=== PATIENT | male | born 1980 | race Caucasian/White ===

== ENCOUNTER 2017-01-12 13:12 | Emergency (ER) | payer MEDICARE, MEDICAID ==
--- NOTE | 2017-01-12 13:29 | ED Physician Chart ---
Chief Complaint/HPI - Patient Information Date Seen:: 01/12/17 Time Seen:: 13:28 Chief Complaint:: CHEST PAIN History of Present Illness:: This 36 year old male was BIB EMS for chest pain. The PT had been at [facility] for Chest Pain. He walked out of there when he felt that the wait was too long. His chest pain was well localized to the left upper anterior chest. It was described as "prickling needles". The pain has been present for "a long time." On further questioning the PT said he had been having it for years. He further states that the pain has been worse for 2 days. The severity of the pain was rated as 1/10. It was not made worse by deep inspiration or cough. It did get worse when other "people were talking too loud." The Pt could not identify any relieving factors. The pain was non- radiating. The Pt has no prior history of heart disease, PE, DVT, cancer, recent surgery, or leg swelling. The PT does have a history of schizophrenia and he is homeless. The pt denied any shortness of breath, fever, chills, nausea, cough or hemoptysis. Review of Systems - Review of Systems General/Constitutional: No fever, No chills, No diaphoresis, No edema Skin: No skin lesions, No bruising Head: No headache Eyes: No loss of vision, No pain, No diplopia ENT: No earache, No sore throat Neck: No neck pain, No stiffness Cardio Vascular: Chest pain, No palpitations, No PND, No orthopnea, No edema Pulmonary: No SOB, No cough, No sputum, No wheezing, Other ( no coughing up blood) GI: No nausea, No vomiting, No diarrhea, No pain G/U: No dysuria, No frequency Endocrine: No polyuria, No polydipsia Psychiatric: Prior psych history, No anxiety, No suicidal ideation, No homicidal ideation, No auditory hallucination, No visual hallucination Hematopoietic: No bruising Allergic/Immuno: No urticaria, No angioedema Neurological: No syncope, No focal symptoms, No weakness, No paresthesia, No headache, No seizure, No dizziness, No vertigo Past Medical History - Past Medical History Social History: Non Smoker, No Alcohol, No Drug Use, Homeless Employment:: Un employed and on social security disability Family Medical History - Family Member Mother History Unknown: Yes Physical Exam - Physical Examination General/Constitutional: Awake, Well-developed, well-nourished, Alert, No distress, Non-toxic appearing, Ambulatory Head: Atraumatic Eyes: Lids, conjuctiva normal, PERRL, EOMI Other Eyes comments:: no nystagmus. Skin: No rash Other Skin comments:: Feet extremely dirty but no evidence of cellulitis. ENMT: External ears, nose nl, Lips, teeth, gums nl, Oropharynx nl, Tonsils nl Neck: Nontender, No JVD, No nuchal rigidity, No mass Respiratory: Nl effort/Exclusion, Clear to Auscultation, No Wheeze/Rhonchi/Rales Cardio Vascular: RRR, No murmur, gallop, rubs, NL S1 S2 Other Cardio Vascular comments:: Good peripheral pulses in all four extremities. GI: No tenderness/rebounding/guarding, No organomegaly, No hernia, Nondistended , No McBurney tenderness Other GI comments:: Rectal examination deferred at my discretion. : No CVA tenderness, NL external genitalia Extremities: No tenderness or effusion, normal strength in all extremities, No edema Neuro/Psych: Alert/oriented, Normal sensory exam, Normal motor strength, Normal gait, No focal deficits Misc: Normal back, No paraspinal tenderness Labs/Radiology/EKG Results - Radiology Results Results: SINGLE VIEW CXR: NO cardiomegaly, NO CHF, NO mediastinal widening, NO pneumothorax, NO areas of pulmonary consolidation or infiltrate. IMPRESSION: NO ACUTE CARDIOPULMONARY ABNORMALITIES. Laboratory Tests 01/12/17 01/12/17 01/12/17 13:36 13:36 13:36 WBC 7.3 RBC 4.31 Hgb 13.6 Hct 39.2 MCV 90.8 MCH 31.4 H MCHC Differential 34.6 RDW 12.2 Plt Count 327 MPV 7.4 Neutrophils % 65.8 Lymphocytes % 22.4 Monocytes % 9.2 Eosinophils % 2.3 Basophils % 0.3 D-Dimer Sodium 139 Potassium 3.2 L Chloride 108 H Carbon Dioxide 27.3 Anion Gap 6.9 L BUN 16 Creatinine 0.9 Est GFR ( Amer) > 60.0 Est GFR (Non-Af Amer) > 60.0 BUN/Creatinine Ratio 17.8 Glucose 101 Calcium 8.9 Troponin I 0.02 01/12/17 13:36 WBC RBC Hgb Hct MCV MCH MCHC Differential RDW Plt Count MPV Neutrophils % Lymphocytes % Monocytes % Eosinophils % Basophils % D-Dimer 180 Sodium Potassium Chloride Carbon Dioxide Anion Gap BUN Creatinine Est GFR ( Amer) Est GFR (Non-Af Amer) BUN/Creatinine Ratio Glucose Calcium Troponin I LAB INTERPRETATION: CBC shows no leukocytosis or anemia. The D dimer and troponin levels were both within the normal parameters. Electrolytes were within the normal parameters except for a mildly elevated chloride and potassium of 3.2. - EKG Interpretations EKG Time:: 13:20 Rate & Rhythm: NSR AT RATE OF 78. [place]: NORMAL Intervals: MT interval is normal. The QRS duration is normal. The QT interval is nor Comments:: No ST segment elevation or depression. Normal appearing T waves. Impression: No acute ischemic findings. Assessment - Assessment General Assessment: CASE SUMMARY: This 36 year old male presens with chronic chest pain. The pain does not sound like cardiac ischemia and the pt has no risk factors for pulmonary embolus. The patient is homeless and it seemed that his major concern was getting a shower. Pt got shower. EKG showed no ischemic findings. The CXR was normal. The patient was discharged in stable condition. MDM DDX CHEST PAIN: NOT Cardiac ischemia based on history, exam, EKG and lab results. LOW RISK for PE. NOT Pneumothorax based on the chest x-ray. NOT Pneumonia based on the CXR and normal WBC count. ED Septic Shock - . Is Septic Shock (SBP<90, OR Lactate>4 mmol\\L) present?: No Reassessment (Disposition) - Reassessment Reassessment Condition:: Improved - Diagnosis Diagnosis:: SCHIZOPHRENIA, CHRONIC CHEST PAINS UNCLEAR ETIOLOGY. Take ibuprofen for minld to moderate chest pains. Return to the ER if your symptoms worsen significantly or for any new problems not addressed during your ER Evaluation. - Aftercare/Follow up Instructions Aftercare/Follow-Up Instructions:: Counseled pt regarding lab results/diagnosis & need follow up, Counseled pt & family regarding lab results/diagnosis & need follow up ED Discharge Plan - Patient Disposition Admit/Discharge/Transfer: PT DISCHARGED HOME Condition at Disposition: Stable Instructions: Chest Wall Pain, [id number]
[2017-01-12 13:44] LABS: % BASOPHILS 0.3 % (0.0-2.0); % EOSINOPHILS 2.3 % (0.0-5.0); % LYMPHOCYTES 22.4 % (20.0-50.0); % MONOCYTES 9.2 % (2.0-10.0); % NEUTROPHILS 65.8 % (40.0-80.0); HEMATOCRIT 39.2 % (39.0-49.0); HEMOGLOBIN 13.6 gm/dL (13.2-17.3); MEAN CELL VOLUME 90.8 fl (80-99); MEAN CORPUSCULAR HEMOGLOBIN 31.4 pg (26.0-30.0); MEAN CORPUSCULAR HGB CONC 34.6 pg (28.0-36.0); MEAN PLATELET VOLUME 7.4 fl; NEUTROPHILE ABSOLUTE 4.8 Th/cmm (1.8-8.0); PLATELET COUNT 327 Th/cmm (150-400); RED BLOOD COUNT 4.31 Mil/cmm (4.30-5.70); RED CELL DISTRIBUTION WIDTH 12.2 % (11.5-20.0); WHITE BLOOD COUNT 7.3 Th/cmm (4.8-10.8)
[2017-01-12 14:01] LABS: ANION GAP 6.9 (7.0-16.0); BUN - UREA NITROGEN 16 mg/dL (7-25); BUN/CREATININE RATIO 17.8; CALCIUM SERUM 8.9 mg/dL (8.6-10.3); CARBON DIOXIDE 27.3 mEq/L (21.0-31.0); CHLORIDE 108 mEq/L (98-107); CREATININE - SERUM 0.9 mg/dL (0.7-1.3); GLUCOSE 101 mg/dL (70-105); POTASSIUM SERUM 3.2 mEq/L (3.5-5.1); SODIUM SERUM 139 mEq/L (136-145)
--- NOTE | 2017-01-13 09:15 | Diagnostic Imaging Report ---
Portable chest x-ray History: Pain Allowing for portable technique the heart size is normal. No focal pulmonary parenchymal processes. No hilar or mediastinal abnormalities. Impression: No acute abnormalities.
== END 2017-01-12 17:10 | disposition home or self-care (01) ==
LOC: ER 13:12
DX: G89.29 Other chronic pain (principal); R07.89 Other chest pain; F20.9 Schizophrenia, unspecified; Z59.0 Homelessness
CPT/HCPCS: 36415-UA; 71010-TC; 80048-TC; 84484-TC; 85025-TC; 85379-TC; 93005